=== PATIENT | female | born 1990 | race Hispanic/Latino ===

== ENCOUNTER 2017-02-09 23:57 | Emergency (ER) | payer OTHER ==
[2017-02-10 00:21] VITALS: BP 108/65; PULSE 80; RESP 16; TEMP 99.1; O2SAT 100
--- NOTE | 2017-02-10 00:47 | ED PDOC ---
HPI: Abdomen Time Seen by Provider: 02/10/17 00:19 Chief Complaint (Nursing): Abdominal Pain Chief Complaint (Provider): abdominal pain History Per: Patient History/Exam Limitations: no limitations Onset/Duration Of Symptoms: Days (2) Current Symptoms Are (Timing): Still Present Location Of Pain/Discomfort: Diffuse Quality Of Discomfort: Sharp, "Pain" Additional History Per: Patient Additional Complaint(s): 26 y/o female presents for eval of diffuse abdominal pain x 2 days. Patient states pain started while having intercourse, and was located on right lower side. Patient states since then pain has spread across lower abdomen and to upper. Some relief noted with Diclofenac. Denies fever, nausea/vomiting, changes in bowel movements, urinary symptoms. Past Medical History Reviewed: Historical Data, Nursing Documentation, Vital Signs Vital Signs: Last Vital Signs Temp 99.1 F 02/10/17 00:04 Pulse 80 02/10/17 00:04 Resp 16 02/10/17 00:04 BP 108/65 02/10/17 00:04 Pulse Ox 100 02/10/17 03:36 - Medical History PMH: Back Problems - Surgical History Surgical History: No Surg Hx - Family History Family History: States: Unknown Family Hx - Home Medications Home Medications: Ambulatory Orders Medication Instructions Recorded Naproxen [Naprosyn] 500 mg PO Q12 PRN #20 tablet 02/10/17 traMADol [Ultram] 50 mg PO Q8 PRN #10 tab 02/10/17 - Allergies Allergies/Adverse Reactions: Allergies Allergy/AdvReac Type Severity Reaction Status Date / Time cefazolin Allergy RASH Verified 02/10/17 00:52 Review of Systems ROS Statement: Except As Marked, All Systems Reviewed And Found Negative Gastrointestinal: Positive for: Abdominal Pain Physical Exam - Reviewed Nursing Documentation Reviewed: Yes Vital Signs Reviewed: Yes - Physical Exam Appears: Positive for: Well, Non-toxic, No Acute Distress Head Exam: Positive for: ATRAUMATIC, NORMAL INSPECTION, NORMOCEPHALIC Skin: Positive for: Normal Color Eye Exam: Positive for: Normal appearance ENT: Positive for: Normal ENT Inspection Cardiovascular/Chest: Positive for: Regular Rate, Rhythm Respiratory: Positive for: Normal Breath Sounds Gastrointestinal/Abdominal: Positive for: Bowel Sounds, Soft, Tenderness ( diffuse discomfort, worse RLQ, suprapubic, llq) Back: Positive for: Normal Inspection Extremity: Positive for: Normal ROM Neurologic/Psych: Positive for: Alert, Oriented - Laboratory Results Result Diagrams: 02/10/17 00:44 02/10/17 00:44 - ECG O2 Sat by Pulse Oximetry: 100 - Progress ED Course And Treament: labs, urine, IV toradol, TV u/s EXAM: US Pelvis, Transvaginal EXAM DATE/TIME: Exam ordered 02/10/2017 12:44 AM CLINICAL HISTORY: 26 years old, female; Pain; Pelvic pain; Patient HX: Pain x2days TECHNIQUE: Real-time transvaginal pelvic ultrasound (complete) with image documentation. Transvaginal imaging was used for better evaluation of the endometrium and adnexa. COMPARISON: No relevant prior studies available. FINDINGS: Uterus/cervix: The endometrium measures 11 mm. The uterus measures 8.3 cm in its cephalocaudad dimension and 3.7 x 5.4 cm in its AP and lateral dimensions. No myometrial mass. Right ovary: The right ovary measures 5.4 x 3.8 x 5.8 cm and demonstrates blood flow. There is a complex cyst measuring 4.4 x 4.0 x 2.5 cm with a small mural nodule measuring 1.8 x 1.3 x 0.8 cm. There is adjacent free fluid. Left ovary: The the left ovary measures 3.0 x 2.2 x 2.4 cm and demonstrates minimal follicular change and blood flow. Free fluid: Mild free fluid in the cul-de-sac with some internal debris. IMPRESSION: 1. Complex right ovarian cyst measuring 4.4 x 4.0 x 2.5 cm which may be hemorrhagic. 2. Mild free fluid adjacent to the right ovary and cul-de-sac with low-level internal echoes that may reflect a small amount of blood. 3. Otherwise negative pelvic sonogram. On re-eval, patient still with pain, although somewhat improved. Percocet PO ordered. CT abd/pelvis with IV contrast ordered EXAM: CT Abdomen and Pelvis With Intravenous Contrast EXAM DATE/TIME: Exam ordered 02/10/2017 2:49 AM CLINICAL HISTORY: 26 years old, female; Pain; Abdominal pain; Generalized TECHNIQUE: Axial computed tomography images of the abdomen and pelvis with intravenous contrast. All CT scans at this facility use one or more dose reduction techniques, viz.: automated exposure control; ma/kV adjustment per patient size (including targeted exams where dose is matched to indication; i.e. head); or iterative reconstruction technique. Coronal and sagittal reformatted images were created and reviewed. CONTRAST: 90 mL of [id number] administered intravenously. COMPARISON: US - TRANSVAGINAL 02/10/2017 1:43:05 AM FINDINGS: Lower thorax: No acute findings. ABDOMEN: Liver: Unremarkable. No mass. Gallbladder and bile ducts: The gallbladder is contracted with no stones. No ductal dilation. Pancreas: Unremarkable. No mass. No ductal dilation. Spleen: Unremarkable. No splenomegaly. Adrenals: Unremarkable. No mass. Kidneys and ureters: Unremarkable. No solid mass. No hydronephrosis. Stomach and bowel: Unremarkable. No obstruction. No mucosal thickening. Appendix: Partial visualization of a normal appendix. PELVIS: Bladder: Unremarkable. No mass Reproductive: The right ovarian cyst measuring 4.3 x 4.1 x 3.9 cm with a Hounsfield measurement of 30. ABDOMEN and PELVIS: Intraperitoneal space: There is dense fluid in the cul-de-sac and adjacent to the right ovary with a Hounsfield measurement of 62 consistent with hemoperitoneum. No free air. Bones/joints: No acute fracture. No dislocation. Soft tissues: Unremarkable. Vasculature: Unremarkable. No abdominal aortic aneurysm. Lymph nodes: Unremarkable. No enlarged lymph nodes. IMPRESSION: 1. Right ovarian cyst measuring 4.3 x 4.1 x 3.9 cm. 2. Minimal adjacent dense fluid in the cul-de-sac which is adjacent to the right ovary consistent with minimal hemoperitoneum. 3. Otherwise negative CT abdomen/pelvis. On re-eval, patient states pain improved. Patient educated on findings, discharged with rx Naproxen, Tramadol. Patient educated on risk of narcotic use/abuse/dependence/overdose; advised to take as needed for severe pain only. Patient demonstrates full understanding. Follow up with Rehab Therapist (patient has appt next week) Return to ED for worsening/concerning symptoms. Disposition - Clinical Impression Clinical Impression: Right ovarian cyst, Ruptured ovarian cyst, Pelvic pain - Patient ED Disposition Is Patient to be Admitted: No Counseled Patient/Family Regarding: Studies Performed, Diagnosis, Need For Followup, Rx Given - Disposition Referrals: Blanka Huff MD [Primary Care Provider] - Disposition: Routine/Home Disposition Time: 03:58 Condition: IMPROVED Additional Instructions: Follow up with Rehab Therapist as scheduled. Take medication as directed, as needed. Pelvic rest. Return to ED for worsening/concerning symptoms. Prescriptions: Naproxen [Naprosyn] 500 mg PO Q12 PRN #20 tablet PRN Reason: Pain, Moderate (4-7) traMADol [Ultram] 50 mg PO Q8 PRN #10 tab PRN Reason: Pain, Severe (8-10) Instructions: Ovarian Cyst (ED), Pelvic Pain in Women (ED) Forms: [facility] ED School/Work Excuse
[2017-02-10 00:54] LABS: BASO % 0.3 % (0.0-2.0); EOS # 0.1 K/uL (0.0-0.7); EOS % 0.6 % (0.0-4.0); HEMATOCRIT 38.9 % (34.0-47.0); LYMPH # 1.1 K/uL (1.0-4.3); LYMPH % 12.8 % (20.0-40.0); MEAN CELL VOLUME 97.9 fl (81.0-99.0); MEAN CORPUSCULAR HEMOGLOBIN 33.5 pg (27.0-31.0); MEAN CORPUSCULAR HGB CONC 34.2 g/dL (33.0-37.0); MEAN PLATELET VOLUME 9.6 fl (7.2-11.7); MONO # 0.6 K/uL (0.0-0.8); MONO % 7.3 % (0.0-10.0); NEUT # 6.8 K/uL (1.8-7.0); RED CELL DISTRIBUTION WIDTH 12.7 % (11.5-14.5); WHITE BLOOD COUNT 8.7 K/uL (4.8-10.8)
[2017-02-10 01:05] LABS: ALB/GLOB RATIO 1.5 (1.0-2.1); ALKALINE PHOSPHATASE 53 U/L (38-126); ALT/SGPT 39 U/L (9-52); AST/SGOT 33 U/L (14-36); BILIRUBIN,TOTAL 0.8 mg/dl (0.2-1.3); BLOOD UREA NITROGEN 14 mg/dl (7-17); CALCIUM 9.6 mg/dL (8.4-10.2); CARBON DIOXIDE 25 mmol/L (22-30); CHLORIDE 104 mmol/L (98-107); GFR AFRICAN-AMERICAN > 60; GLUCOSE,RANDOM 98 mg/dL (65-105); LIPASE 125 U/L (23-300); POTASSIUM 4.6 MMOL/L (3.6-5.0); SODIUM 137 mmol/l (132-148); TOTAL PROTEIN 6.9 G/DL (6.3-8.2)
[2017-02-10] MEDS ORDERED: Oxycodone/Acetaminophen 5/325 mg Tab PO ONE (02:43)
[2017-02-10] MEDS ORDERED: Oxycodone/Acetaminophen 5/325 mg Tab ONE (02:44)
[2017-02-10] MEDS ORDERED: Sodium Chloride 0.9% 50 ML IV ONE (02:55)
[2017-02-10] MEDS ORDERED: Iohexol 300 100 ML IJ ONE (02:55)
--- NOTE | 2017-02-10 09:35 | US ---
HISTORY: pelvic pain COMPARISON: None available. TECHNIQUE: Transvaginal FINDINGS: UTERUS: Measures 8.3 x 5.4 x 3.7 cm. Normal in size and appearance. No fibroid or other mass lesion seen. ENDOMETRIUM: Measures 10 mm in diameter. Unremarkable. CERVIX: No cervical abnormality identified. RIGHT OVARY: Measures 5.4 x 5.8 x 3.4 cm. Complex right ovarian cyst with heterogeneous low-level echoes, 4.0 x 2.5 x 4.0 cm, likely a hemorrhagic cyst. There is some apparently solid material within this complex cyst measuring 1.3 x 1.8 x 0.8 cm, though no flow is demonstrated within the solid component. This may represent blood clot. Followup advised in 6-8 weeks with transvaginal ultrasound. Normal flow demonstrated in right ovary. LEFT OVARY: Measures 3.0 x 2.4 x 2.2 cm. No solid mass. Normal flow. FREE FLUID: Complex fluid in cul-de-sac common nonspecific. Possible blood products. OTHER FINDINGS: None. IMPRESSION: 4.0 cm complex right ovarian cyst, possibly hemorrhagic cyst. Apparently solid component within this cyst may represent blood clot. Followup with transvaginal pelvic ultrasound examination is advised in 6-8 weeks. Small amount of complex fluid noted in cul-de-sac. No other significant abnormality. Preliminary interpretation of this examination was reported by [facility] at 2:43 a.m. on 02/10/2027 a. There is concurrence of this report with the preliminary interpretation.
--- NOTE | 2017-02-10 10:29 | CT ---
PROCEDURE: CT scan abdomen and pelvis dated 02/10/2017 HISTORY: Abdominal pain. COMPARISON: None. TECHNIQUE: Contiguous axial images of the abdomen and pelvis pelvis performed following oral and intravenous injection of approximately 90 cc Omnipaque 300 contrast material. Additional 2 dimensional sagittal and coronal. Coronal and Sagittal reformats generated. Radiation dose: Total exam DLP = 519.86 mGy-cm. This CT exam was performed using one or more of the following dose reduction techniques: Automated exposure control, adjustment of the mA and/or kV according to patient size, and/or use of iterative reconstruction technique. FINDINGS: LOWER THORAX: Minor atelectasis of both posterior sulci [id number]. No acute consolidation effusion or basilar pneumothorax. Small hiatal hernia. Heart size within range of normal. No significant pericardial effusion. LIVER: The liver exhibits relatively normal size measuring 17.2 cm in CC dimension. Demonstrates minimal fatty hepatic infiltration. No obvious hepatic mass or collection. Portal and splenic veins are opacified. GALLBLADDER AND BILE DUCTS: Gallbladder is physiologically distended. No evidence of intraluminal gallbladder calculi. PANCREAS: Unremarkable. No mass. No ductal dilatation. SPLEEN: Please upper limits of normal/borderline enlarged measuring approximately 12.5 cm in AP dimension. ADRENALS: No adrenal lesions. KIDNEYS AND URETERS: Kidneys demonstrate symmetric nephrograms. No evidence of nephrolithiasis or hydronephrosis. BLADDER: Urinary bladder is incompletely distended which may account for thick-walled appearance. Possibility of a cystitis not excluded. REPRODUCTIVE: There is a relatively large right ovarian cyst measures approximately 4.1 x 4.0 x 3.7 cm. Questionable adjacent small amount of proteinaceous fluid such as hemoperitoneum. APPENDIX: The appendix is not seen with complete certainty however no evidence to suggest acute appendicitis. BOWEL: Evaluation of the bowel is limited due to the lack of oral contrast material. Stomach is incompletely distended which may in part account for thick-walled appearance. Visualized loops of small bowel exhibit normal contour and caliber. No evidence of acute mechanical small bowel obstruction. There is a large amount of stool within the colon consistent with fecal retention/constipation. PERITONEUM: As above. No evidence of free air LYMPH NODES: Unremarkable. No enlarged lymph nodes. VASCULATURE: Unremarkable. No aortic aneurysm. BONES: No fracture or destructive lesion. There is a dextroscoliosis centered at the thoracolumbar junction mild compensatory levoscoliosis at the L5-S1 level. OTHER FINDINGS: None. IMPRESSION: Large right ovarian cyst with what appears represent a small amount of adjacent proteinaceous fluid such as hemoperitoneum. . . Mild fatty hepatic infiltration. Borderline/mild splenomegaly.
== END 2017-02-10 04:15 | disposition home or self-care (01) ==
LOC: H.ER 23:57
DX: N83.201 Unspecified ovarian cyst, right side (principal)
CPT/HCPCS: 74177; 76830; 80053; 81025; 83690; 85025; 96374; 99283; J1885; Q9967